=== PATIENT | male | born 1960 | race Caucasian/White ===

== ENCOUNTER 2019-09-29 09:24 | Emergency (ER) | payer MEDICAID ==
--- NOTE | 2019-09-29 10:28 | ED Physician Documentation ---
PD HPI SKIN - Stated complaint Stated Complaint: L HAND/FINGER INFECTION - Chief complaint Chief Complaint: Ext Problem - History obtained from History obtained from: Patient - History of Present Illness Timing - onset: How many days ago (few) Timing - duration: Days (few) Timing - details: Gradual onset, Still present Quality / character: Painful, Discolored (red), Swelling. No: Draining Associated symptoms: No: Fever Similar symptoms before: Has not had sx before Review of Systems Constitutional: denies: Fever, Chills, Myalgias GI: denies: Nausea, Vomiting PD PAST MEDICAL HISTORY - Past Medical History Past Medical History: No - Present Medications Home Medications: Ambulatory Orders Medication Instructions Recorded Confirmed Mupirocin 1 applic TP TID #15 g 09/29/19 Sulfamethox/Trimeth 800/160 1 each PO BID #14 tablet 09/29/19 [Bactrim Ds 800/160] - Allergies Allergies/Adverse Reactions: Allergies Allergy/AdvReac Type Severity Reaction Status Date / Time No Known Drug Allergies Allergy Verified 09/29/19 09:32 - Social History Does the pt smoke?: No Smoking Status: Former smoker Does the pt drink ETOH?: Yes Substance Use and Type: Marijuana PD ED PE NORMAL - Vitals Vital signs reviewed: Yes - General General: Alert and oriented X 3, No acute distress, Well developed/nourished - Derm Derm: Normal color, Warm and dry - Extremities Extremities: Other (left index finger with redness and swelling at corner of nailbed. Slight white color and nicked with scissor with barely any purulence out. I did trim corner of the nail out from edge. ) - Neuro Neuro: Alert and oriented X 3, No motor deficit, Normal speech Results - Vitals Vitals: Vital Signs - 24 hr 09/29/19 09/29/19 09:29 10:54 Temperature 36.8 C Heart Rate 87 87 Respiratory 18 20 Rate Blood Pressure 174/123 H 178/109 H O2 Saturation 98 96 Oxygen O2 Source Room air PD MEDICAL DECISION MAKING - ED course Complexity details: considered differential (paronychia with redness to the DIP level, so will go with oral meds as well. Minimal drainage from corner of nail bed. ), d/w patient Departure - Departure Disposition: Home, Self Care Clinical Impression: Paronychia Condition: Stable Record reviewed to determine appropriate education?: Yes Instructions: ED Fingernail Infec Follow-Up: ANTONIO MCKEE [Primary Care Provider] - Prescriptions: Mupirocin 1 applic TP TID #15 g Sulfamethox/Trimeth 800/160 [Bactrim Ds 800/160] 1 each PO BID #14 tablet Comments: Soak in warm water 2-3 times a day to promote drainage and good blood flow. And use topical antibiotic mupirocin lightly to the area. Bactrim antibiotic orally for the infection. Tylenol or ibuprofen or both as needed for pains. Anticipate improvement over the next 2 to 3 days and resolution within 3 to 5 days. Recheck if not improved in that timeframe. Discharge Date/Time: 09/29/19 10:57
[2019-09-29] MEDS ORDERED: IBUPROFEN 600 MG TABLET PO STA (10:50)
[2019-09-29] MEDS ORDERED: SULFAMETH/TRIMETH DS 800/160 MG TABLET PO STA (10:50)
[2019-09-29 10:55] VITALS: BP 178/109
== END 2019-09-29 10:57 | disposition home or self-care (01) ==
LOC: ED 09:24
DX: L03.012 Cellulitis of left finger (principal); Z87.891 Personal history of nicotine dependence
CPT/HCPCS: 99282; 99283; A9270

== ENCOUNTER 2020-01-25 08:29 | Emergency (ER) | payer MEDICAID ==
--- NOTE | 2020-01-25 08:34 | ED Physician Documentation ---
History of Present Illness - Stated complaint Stated Complaint: R SHOULD SWELLING - History obtained from History obtained from: Patient - Additonal information Additional information: Patient comes emergency department complaining of right elbow redness and swelling that has been getting worse over the last few days. Patient denies any fevers or chills. He states that he did not have any injury to the area that he knows of, although he did notice a sharp pain the other day and was not sure if he had may be sustained a bite. Patient has no history of diabetes. He does note that he seems to get skin infections easily, especially in his axillae and groin. He does not have any history of bursitis. He thinks he might have gout but has no specific diagnosis of this. Patient does note that he drinks a lot of alcohol. No other complaints at this time. Review of Systems Ten Systems: 10 systems reviewed and negative Constitutional: reports: Reviewed and negative Eyes: reports: Reviewed and negative Ears: reports: Reviewed and negative Nose: reports: Reviewed and negative Throat: reports: Reviewed and negative Cardiac: reports: Reviewed and negative Respiratory: reports: Reviewed and negative GI: reports: Reviewed and negative : reports: Reviewed and negative Skin: reports: Other (Skin redness right elbow) Musculoskeletal: reports: Joint pain, Joint swelling Neurologic: reports: Reviewed and negative Psychiatric: reports: Reviewed and negative Endocrine: reports: Reviewed and negative Immunocompromised: reports: Reviewed and negative PD PAST MEDICAL HISTORY - Present Medications Home Medications: Ambulatory Orders Medication Instructions Recorded Confirmed Mupirocin 1 applic TP TID #15 g 09/29/19 Sulfamethox/Trimeth 800/160 1 each PO BID #14 tablet 09/29/19 [Bactrim Ds 800/160] Sulfamethox/Trimeth 800/160 1 each PO BID #14 tablet 01/25/20 [Bactrim Ds 800/160] - Allergies Allergies/Adverse Reactions: Allergies Allergy/AdvReac Type Severity Reaction Status Date / Time No Known Drug Allergies Allergy Verified 01/25/20 08:40 - Social History Does the pt smoke?: No Smoking Status: Former smoker Does the pt drink ETOH?: Yes PD ED PE NORMAL - Vitals Vital signs reviewed: Yes - General General: Alert and oriented X 3, No acute distress, Well developed/nourished - HEENT HEENT: Atraumatic, PERRL, Moist mucous membranes - Neck Neck: Supple, no meningeal sign - Cardiac Cardiac: Strong equal pulses - Respiratory Respiratory: No respiratory distress - Derm Derm: Warm and dry, Other (Erythema of right olecranon bursal area spreading proximally and distally, as noted Below. Moderate edema associated with this. No streaking.Patient has 1 tiny scabbed lesion of approximately 2 mm diameter noted near his elbow posteriorly.) - Extremities Extremities: Other (Patient has a moderate degree of swelling and fluctuance of his right olecranon bursa with moderate erythema over the bursa and spreading superiorly and inferiorly from there, with moderate edema.) - Neuro Neuro: Alert and oriented X 3 - Psych Psych: Normal mood, Normal affect Results - Vitals Vitals: Vital Signs - 24 hr 01/25/20 08:41 Temperature 36.8 C Heart Rate 113 H Respiratory 20 Rate Blood Pressure 186/137 H O2 Saturation 97 Oxygen O2 Source Room air Procedures - Abscess I&D (location) R olecranon bursa Preparation: Betadine, Lidocaine 1% Incision: Incised with scalpel, Irrigated, Packed (Antibacterial quarter inch gauze packing applied), Culture obtained, Other (Patient did not have purulent drainage, but did have moderate amount of serous drainage.) Other: Pt tolerated well, Dressing applied, Antibiotic prescribed PD MEDICAL DECISION MAKING - ED course Complexity details: considered differential, d/w patient ED course: I discussed with the patient that at this point in time, he appears to have a cellulitis, and that his bursal fluid did not appear infected. However, we have sent a wound culture. The patient is advised that he will need to have his wound check and packing removed in 2 days, about 3 by his primary care physician, urgent care, or ourselves. Patient should take his antibiotics as directed for the next 7 days. We discussed the usual indications for return. Departure - Departure Disposition: 01 Home, Self Care Clinical Impression: Cellulitis Qualifiers: Site of cellulitis: extremity Site of cellulitis of extremity: upper extremity Laterality: right Qualified Code(s): L03.113 - Cellulitis of right upper limb Condition: Stable Instructions: ED Infec Skin Cellulitis Prescriptions: Sulfamethox/Trimeth 800/160 [Bactrim Ds 800/160] 1 each PO BID #14 tablet Comments: Please take the antibiotics, as directed for your cellulitis. You will need to have your wound rechecked in 2 days and packing removed. You should start to notice an improvement in the redness and swelling of your elbow area after couple of days of antibiotics.
[2020-01-25] MEDS ORDERED: LIDOCAINE 1% 2 ML VIAL ONE (09:09)
[2020-01-25] MEDS ORDERED: SULFAMETH/TRIMETH DS 800/160 MG TABLET PO STA (09:37)
[2020-01-25 10:06] VITALS: BP 176/92
== END 2020-01-25 10:06 | disposition home or self-care (01) ==
LOC: ED 08:29
DX: L03.113 Cellulitis of right upper limb (principal); Z87.891 Personal history of nicotine dependence
CPT/HCPCS: 10061; 87070; 87181; 87205; 99283; 99284; A9270

== ENCOUNTER 2020-09-12 09:25 | Emergency (ER) | payer MEDICAID ==
[2020-09-12 09:31] VITALS: BP 167/95
--- NOTE | 2020-09-12 09:44 | ED Physician Documentation ---
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 Yesterday he was squatting to put a brick under a piece of furniture and felt a pop in his right groin with persistent pain since. Declines pain medication. Review of Systems Constitutional: reports: Reviewed and negative Eyes: reports: Reviewed and negative Ears: reports: Reviewed and negative Nose: reports: Reviewed and negative Throat: reports: Reviewed and negative Cardiac: reports: Reviewed and negative PD PAST MEDICAL HISTORY - Past Medical History Cardiovascular: None Respiratory: None Neuro: None Endocrine/Autoimmune: None GI: None : None HEENT: None Psych: None Musculoskeletal: None Derm: Other - Past Surgical History Past Surgical History: No - Present Medications Home Medications: Ambulatory Orders Medication Instructions Recorded Confirmed Mupirocin 1 applic TP TID #15 g 09/29/19 Sulfamethox/Trimeth 800/160 1 each PO BID #14 tablet 09/29/19 [Bactrim Ds 800/160] Sulfamethox/Trimeth 800/160 1 each PO BID #14 tablet 01/25/20 [Bactrim Ds 800/160] - Allergies Allergies/Adverse Reactions: Allergies Allergy/AdvReac Type Severity Reaction Status Date / Time No Known Drug Allergies Allergy Verified 09/12/20 09:28 - Social History Does the pt smoke?: No Smoking Status: Former smoker Does the pt drink ETOH?: Yes Does the pt have substance abuse?: No PD ED PE NORMAL - Vitals Vital signs reviewed: Yes - General General: Alert and oriented X 3, No acute distress - Extremities Extremities: Other (Focused examination of the right groin shows no hernia mass. Nontender testicles and scrotum with normal lie and cremaster reflexes. He does have tenderness to the top of the gracilis without limited range of motion.) - Neuro Neuro: Alert and oriented X 3, Normal speech Results - Vitals Vitals: Vital Signs - 24 hr 09/12/20 09:28 Temperature 36.8 C Heart Rate 93 Respiratory 18 Rate Blood Pressure 167/95 H O2 Saturation 99 Oxygen O2 Source Room air Departure - Departure Disposition: 01 Home, Self Care Clinical Impression: Strain of right groin Condition: Good Record reviewed to determine appropriate education?: Yes Instructions: ED Strain Groin Comments: No evidence of hernia or other significant pathology. If pain is persistent talk with your doctor about physical therapy. You can take ibuprofen and or the cyclobenzaprine you have at home for this. Return if worsening.
== END 2020-09-12 09:48 | disposition home or self-care (01) ==
LOC: ED 09:25
DX: S39.011A Strain of muscle, fascia and tendon of abdomen, initial encounter (principal); X50.9XXA Other and unspecified overexertion or strenuous movements or postures, initial encounter; Y93.89 Activity, other specified; Z87.891 Personal history of nicotine dependence
CPT/HCPCS: 99281; 99282